=== PATIENT | female | born 1990 | race Caucasian/White ===

== ENCOUNTER 2022-02-12 16:25 | Inpatient (IN) | payer OTHER, SELFPAY ==
[2022-02-12] VITALS (14 sets, daily range): BP systolic 100–121; BP diastolic 59–82; PULSE 49–71; TEMP 36.3–36.9; O2SAT 97–99; BMI 27.9
[2022-02-12] MEDS: Lactated Ringers 1,000 ML 50 ML IV (17:00)
[2022-02-12 17:03] LABS: Absolute Lymphocyte Count 1.72 X10^3/uL (0.83-4.51); Absolute Neutrophil Count 8.2 X10^3/uL (2.0-7.7); Basophil# 0.04 X10^3/uL; Basophil% 0.4 % (0-1); Eosinophil# 0.06 X10^3/uL; Eosinophils% 0.6 % (0-5); Hematocrit 36.2 % (37-47); Lymphocyte # 1.72 X10^3/ul (0.83-4.51); Lymphocyte % 15.8 % (19-41); Mean Corp Hgb Conc 33.1 g/dL (32-36); Mean Corpuscular Hgb 29.1 pg (27.0-32.0); Mean Corpuscular Volume 87.7 fL (81-99); Mean Platelet Vol. 11.1 fl (6.2-12.0); Monocyte# 0.74 X10^3/uL; Monocyte% 6.8 % (0-10); NRBC Flagged by Analyzer 0 % (0-5); Neutrophil # 8.23 X10^3/uL (2.7-7.7); Neutrophil % 75.6 % (47-70); Platelet Count 203 K/mm3 (150-450); RBC Distribution Width CV 13.1 % (11.6-14.6); RBC Distribution Width SD 41.8 fl (35.1-43.9); Red Blood Count 4.13 M/mm3 (4.2-5.4); White Blood Count 10.9 K/mm3 (4.4-11.0)
[2022-02-12] MEDS: Oxytocin 15 Units/NS 250ml 15 UNITS/250 ML IV.SOLN 2 UNITS IV (17:07)
[2022-02-13] VITALS (42 sets, daily range): BP systolic 86–143; BP diastolic 50–77; PULSE 47–88; TEMP 36.4–37.9; O2SAT 93–98
--- NOTE | 2022-02-13 08:55 | HP.PCM.OB_ITS ---
HPI - General General Date of Admission: 02/12/22 HPI Narrative ALBER CARBAJAL, is a 31 F who presents for elective induction of labor. at 40w4d. course uncomplicated. Maternal Data Information ZACHARY Calculator Estimated Delivery Date Method Current WG Current Estimate 02/09/22 Manual 40w 4d PFSH PFSH Home Medications vitamins-iron fumarate 65 mg iron-folic acid 1 mg tablet 1 tab PO DAILY 02/12/22 [History Last Taken 02/12/22 10:00] Allergy/AdvReac Type Severity Reaction Status Date / Time No Known Allergies Allergy Verified 02/12/22 14:06 Surgical History (Updated 02/12/22 @ 19:17 by Ro Beckman) [place] teeth removed Social History Smoking Status: Never smoker History Elective abortions Hx Para 0 Spontaneous abortions Hx # Term Pregnancies Ectopic pregnancies Hx # Pregnancies Multiple births # of living children Visit Details OB Flowsheet Initial Weight: Not Recorded Date -?-?-?-?-?-?-?-?-?-?-?-?- EGA Weight BP Urine Prot -?-?-?-?-?-?-?-?-?-?-?-?- Glucose FHR FuHt Pres Dilation -?-?-?-?-?-?-?-?-?-?-?-?- Effaced St Visit Note 02/12/22 -?-?-?-?-?-?-?-?-?-?-?-?- 40w 3d 163 lb 100/61 113/63 105/59 121/82 110/77 106/61 100/60 106/57 99/63 111/52 107/62 109/54 110/70 112/64 143/77 112/67 121/69 110/56 119/57 108/57 110/61 110/56 97/53 121/69 86/50 102/61 -?-?-?-?-?-?-?-?-?-?-?-?- -?-?-?-?-?-?-?-?-?-?-?-?- NST FHR Rate Baby A Baseline: 125 Variability:: Moderate Accelerations:: 15 x 15 Decelerations:: None FHR Category:: Category I Uterine Activity:: Irregular ROS Constitutional Constitutional: Reports systems reviewed and no addt'l complaints, except as documented; Denies headache(s) Eyes Eyes: Denies acute decrease in peripheral vision, blurry vision or change in vision ENT HEENT: Reports systems reviewed and no addt'l complaints, except as documented Cardiovascular Cardiovascular: Denies chest pain or dizziness Respiratory/Chest Respiratory/Chest: Denies cough, dyspnea, dyspnea on exertion, shortness of breath at rest or shortness of breath with exertion Gastrointestinal Gastrointestinal: Denies abdominal pain, diarrhea, nausea or vomiting Genitourinary Genitourinary: Denies abdominal discomfort Musculoskeletal Musculoskeletal: Denies limited range of motion Integumentary Integumentary: Reports systems reviewed and no addt'l complaints, except as documented Neurologic Neurologic: Reports systems reviewed and no addt'l complaints, except as documented Psychiatric Psychiatric: Reports systems reviewed and no addt'l complaints, except as documented Endocrine Endocrinology: Reports systems reviewed and no addt'l complaints, except as documented Hematologic/Lymphatic Hematologic/Lymphatic: Reports systems reviewed and no addt'l complaints, except as documented Allergic/Immunologic Allergic/Immunologic: Reports systems reviewed and no addt'l complaints, except as documented Vital Signs Vital Signs Vital Signs: 02/12/22 13:39 02/12/22 13:39 02/12/22 13:40 Temperature 98.2 F Temperature Source Pulse Rate 53 L Blood Pressure 100/61 BP Systolic 100 BP Diastolic 61 Pulse Ox 02/12/22 14:01 02/12/22 14:01 02/12/22 17:25 Temperature 98.2 F Temperature Source Pulse Rate 65 Blood Pressure BP Systolic BP Diastolic Pulse Ox 97 02/12/22 17:26 02/12/22 17:26 02/12/22 17:26 Temperature Temperature Source Pulse Rate 56 L Blood Pressure 113/63 BP Systolic 113 BP Diastolic 63 Pulse Ox 98 02/12/22 18:31 02/12/22 18:31 02/12/22 18:31 Temperature Temperature Source Pulse Rate 55 L Blood Pressure 105/59 L BP Systolic 105 BP Diastolic 59 Pulse Ox 98 02/12/22 19:21 02/12/22 19:21 02/12/22 19:20 Temperature 98.4 F Temperature Source Pulse Rate 71 Blood Pressure 121/82 H BP Systolic 121 BP Diastolic 82 Pulse Ox 02/12/22 19:21 02/12/22 20:17 02/12/22 20:17 Temperature 98.2 F Temperature Source Temporal Temporal Pulse Rate Blood Pressure BP Systolic BP Diastolic Pulse Ox 02/12/22 20:18 02/12/22 20:18 02/12/22 20:17 Temperature 98.3 F Temperature Source Pulse Rate 56 L Blood Pressure 110/77 BP Systolic 110 BP Diastolic 77 Pulse Ox 02/12/22 21:47 02/12/22 21:47 02/12/22 21:47 Temperature 98.1 F Temperature Source Pulse Rate 49 L Blood Pressure BP Systolic BP Diastolic Pulse Ox 99 02/12/22 21:48 02/12/22 21:48 02/12/22 21:47 Temperature Temperature Source Temporal Pulse Rate 57 L Blood Pressure 106/61 BP Systolic 106 BP Diastolic 61 Pulse Ox 02/12/22 23:31 02/12/22 23:31 02/12/22 23:30 Temperature 97.3 F L Temperature Source Pulse Rate 54 L Blood Pressure 100/60 BP Systolic 100 BP Diastolic 60 Pulse Ox 02/12/22 23:29 02/13/22 01:35 02/13/22 01:35 Temperature Temperature Source Temporal Pulse Rate 54 L Blood Pressure 106/57 L BP Systolic 106 BP Diastolic 57 Pulse Ox 02/13/22 01:34 02/13/22 02:29 02/13/22 02:29 Temperature 98.1 F Temperature Source Pulse Rate 56 L Blood Pressure 99/63 BP Systolic 99 BP Diastolic 63 Pulse Ox 02/13/22 02:29 02/13/22 02:29 02/13/22 03:56 Temperature 98.1 F 97.9 F Temperature Source Temporal Pulse Rate Blood Pressure BP Systolic BP Diastolic Pulse Ox 02/13/22 03:57 02/13/22 03:57 02/13/22 03:57 Temperature Temperature Source Pulse Rate 47 L Blood Pressure 111/52 L BP Systolic 111 BP Diastolic 52 Pulse Ox 98 02/13/22 05:26 02/13/22 05:26 02/13/22 05:25 Temperature 99.3 F H Temperature Source Pulse Rate 62 Blood Pressure 107/62 BP Systolic 107 BP Diastolic 62 Pulse Ox 02/13/22 05:26 02/13/22 07:24 02/13/22 07:24 Temperature Temperature Source Temporal Pulse Rate 50 L Blood Pressure 109/54 L BP Systolic 109 BP Diastolic 54 Pulse Ox 02/13/22 07:24 02/13/22 07:24 02/13/22 07:22 Temperature 98.2 F Temperature Source Temporal Pulse Rate Blood Pressure BP Systolic BP Diastolic Pulse Ox 93 02/13/22 07:22 02/13/22 07:29 Temperature 98.2 F Temperature Source Temporal Pulse Rate Blood Pressure BP Systolic BP Diastolic Pulse Ox Weight Weight: 163 lb Body Mass Index (BMI) 27.9 Physical Exam Const alert and oriented x3 General Appearance: cooperative Orientation / Consciousness: awake, oriented to person, oriented to place and oriented to time Exam Limitations: no limitations HEENT normocephalic Head and Scalp: normal to inspection, normocephalic and atraumatic Face and Sinus: normal facial exam Eyes General Eye: normal appearance of both eyes Neck full ROM Chest Chest: symmetrical chest wall rise Resp normal respiratory effort and normal air movement Auscultation: clear to auscultation bilaterally Cardio regular rate, regular rhythm, S1 normal heart sound, S2 normal heart sound, no murmurs, no rub, no gallops and no clicks GI normal to inspection, nondistended, normoactive bowel sounds and non-tender appearance of the vagina normal Narrative: AROM for large amount of clear fluid. Cervical exam from 2cm to 4cm with contraction after AROM Bladder / Kidney Exam: no CVA tenderness Manual OB Exam: estimated gestational size appropriate, presentation cephalic, dilated 2cm, effaced 60 and station -2 Back/Spine normal ROM Extremity normal to inspection and full ROM Skin no rashes or lesions noted Neuro oriented x3, CN's II-XII intact bilaterally and moves all extremities Sensorium / Orientation: awake, alert and oriented to person Motor Exam: clonus absent Deep Tendon Reflexes: Rt Patellar (L4): 2+ and Lt Patellar (L4): 2+ Labs Labs Labs: Blood Type O POSITIVE Antibody Screen NEGATIVE Hct 36.2 % (37-47) L Hgb 12.0 g/dL (12.0-15.0) RPR negaive GBS negative HIV negative HBsAG negative Rubella Immune HepB Negative HepC negative HIV non reactive O positive GC/CT negative Assessment & Plan (1) Encounter for elective induction of labor: PLAN: Plan 1) Induction of labor 2) Pitocin per protocol for active management 3) Continuous EFM 4) Epidural for pain management upon request 5) GBS negative 6) Category 1 FHT 7) collaborative physician.
[2022-02-13] MEDS: Lactated Ringers 1,000 ML 50 ML IV (09:52)
[2022-02-13] MEDS: LACTATED RINGERS 500 ML 999 ML IV (10:55)
[2022-02-13] MEDS: fentaNYL-bupivacaine (epidural) 100 ML BAG EPIDURAL ×4 (11:56→21:02)
[2022-02-13] MEDS: Oxytocin 15 Units/NS 250ml 15 UNITS/250 ML IV.SOLN 14 UNITS IV (14:04)
[2022-02-13] MEDS: Lactated Ringers 1,000 ML 200 ML IV ×2 (16:08→21:06)
[2022-02-13] MEDS: Ondansetron 4 MG/2 ML Vial IV (19:20)
[2022-02-13] MEDS: Calcium Carbonate 500 MG Tablet 1000 MG PO (20:35)
[2022-02-14] VITALS (35 sets, daily range): BP systolic 80–126; BP diastolic 41–81; PULSE 51–113; RESP 14–18; TEMP 36.1–38.3; O2SAT 93–100
[2022-02-14] MEDS: LACTATED RINGERS 500 ML 999 ML IV (00:10)
[2022-02-14] MEDS: Amnioinfusion- 0.9% NS 1,000 ML IV.SOLN. 1000 ML INTRA-UTER (00:55)
[2022-02-14] MEDS: Ondansetron 4 MG/2 ML Vial IV (01:25)
[2022-02-14] MEDS: Acetaminophen 500 MG Tablet PO (02:22)
[2022-02-14] MEDS: Lactated Ringers 1,000 ML 200 ML IV (02:22)
[2022-02-14] MEDS: Sodium Citrate/Citric Acid 30 ML UDC PO (02:23)
[2022-02-14] MEDS: Cefazolin 2 GM in 0.9% Normal Saline 100 ML IV ×3 (02:41→20:13)
--- NOTE | 2022-02-14 03:34 | EX.PCM.OBRPT ---
Maternal Data Information ZACHARY Calculator Estimated Delivery Date Method Current WG Current Estimate 02/09/22 Manual 40w 5d Details Operative Information Date of Procedure: 02/14/22 Pre-Operative Diagnosis: (1) Inability of fetus to tolerate labor Post-Operative Diagnosis: Same Indications for : - (See above) Indications Narrative: The patient was taken to the operating room where epidural anesthesia was dosed & found to be adequate. She was prepped and draped in the dorsal supine position with a leftward tilt. A Pfannenstiel skin incision was made approximately 2 cm above the symphysis pubis and carried through to the underlying fascia with the scalpel. The fascia was incised incised in the midline and extended laterally with the Eli scissors. The rectus muscles were in the midline and the peritoneum was entered carefully and bluntly. The peritoneal incision was stretched and the bladder blade was inserted. Vesicouterine peritoneum was tented up, incised & then bladder flap created gently. The uterine incision was made in a low transverse fashion with the scalpel and extended superiorly and inferiorly with blunt dissection. The 's head was brought to the incision in the flexed position and delivered without difficulty. The head was gently guided to allow delivery of the anterior and posterior shoulders. The body then delivered with fundal pressure in the standard fashion. The 3VC cord was clamped and cut in delayed fashion. The infant was handed off to the waiting pediatric critical care nurse. The placenta was delivered with fundal massage and gentle traction in the standard fashion. The uterus was exteriorized and cleared of clots and debris. The uterine incision was closed with #1 Vicryl suture in a running locked fashion. Monocryl suture was used in an imbricating fashion. The incision was examined and was found to be hemostatic. The uterus was returned to the abdominal cavity. After irrigating Ang was placed over the uterine incision as some areas were denuded (but hemostatic). The peritoneum was closed with vicryl suture in running fashion The rectus muscle was examined and any bleeding was Bovie cauterized. The fascia was closed with PDS suture in a running standard fashion. The subcutaneous tissue was examining and any bleeding was Bovie cauterized. The skin was closed in a subcuticular fashion by the MAINFRAME ANALYST while I was present in the labor & delivery unit. The remainder of the procedure was performed by me with assistance. All sponge, lap, and needle counts were correct. The patient was taken to her room for recovery in a stable condition. Classification: DIO Procedure Type: low transverse inspector poising #1: Nik Abarca Type of Anesthesia: Epidural Antibiotic Given: Ancef 2 grams IV x1 and Zithromax 500 mg/5 mL X1 Drain: Larose to straight drain Estimated Blood Loss: 700ml Fluids Replaced: 1000ml Procedure Start Time: 02:44 Procedure Stop Time: 03:35 Findings Description of Procedure: Normal maternal uterus and adnexa Presentation: Positive for Vertex Amniotic Membrane Rupture Type: Artificial Amniotic Fluid Description: Clear Placental Delivery Description: Expressed Placenta Disposition: [facility] Specimen(s) Sent to Pathology: none Cord Vessel Description: 3 Vessels Cord Entanglement: None A Gender: Male (Antwon, weight = 3785g) (1 minute): 8 (5 minute): 9 Delayed Cord Clamping: Yes Complications Complications: None
--- NOTE | 2022-02-14 04:30 | NURSING ---
called in for Pt update. updated temp 100.9 temporal when back to room from OR, HR 110-130s, fundus firm, lochia small. new orders to start gentamycin 5mg/kg x1 and then pharmacy to dose and to start ancef 2g IV Q8 hours x3 doses
[2022-02-14] MEDS: Oxytocin 15 Units/NS 250ml 15 UNITS/250 ML IV.SOLN 83 UNITS IV (05:06)
[2022-02-14] MEDS: Ketorolac 30 MG/ML Syringe IV ×4 (05:07→23:33)
--- NOTE | 2022-02-14 06:43 | NURSING ---
epidural catheter removed at this time, blue catheter intact.
[2022-02-14] MEDS: Acetaminophen 500 MG Tablet 1000 MG PO ×3 (08:44→20:14)
[2022-02-14] MEDS: 0.9% Saline Lock 10 ML Syringe IV ×5 (11:05→23:34)
[2022-02-14] MEDS: Senna/Docusate Sodium 1 Tablet PO (11:48)
[2022-02-14] MEDS: Prenatal Vits Tablet 1 TABLET PO (12:08)
[2022-02-14] MEDS: Enoxaparin 40 MG/0.4 ML Syringe SC (14:57)
--- NOTE | 2022-02-14 23:38 | NURSING ---
this RN provided education on incentive spirometer. pt able to go up to 2000 and tolerated well.
[2022-02-15 02:56] VITALS: BP 87/50; PULSE 54; RESP 16; TEMP 36.4
[2022-02-15] MEDS: Acetaminophen 500 MG Tablet 1000 MG PO ×4 (02:59→20:20)
[2022-02-15] MEDS: Cefazolin 2 GM in 0.9% Normal Saline 100 ML IV (02:59)
[2022-02-15] MEDS: 0.9% Saline Lock 10 ML Syringe IV ×3 (02:59→22:33)
[2022-02-15 04:23] LABS: Hemoglobin 8.9 g/dL (12.0-15.0); Mean Corpuscular Hgb 29.1 pg (27.0-32.0); Mean Corpuscular Volume 88.2 fL (81-99); Mean Platelet Vol. 10.9 fl (6.2-12.0); Platelet Count 145 K/mm3 (150-450); RBC Distribution Width CV 13.2 % (11.6-14.6); RBC Distribution Width SD 42.5 fl (35.1-43.9); Red Blood Count 3.06 M/mm3 (4.2-5.4); White Blood Count 13.4 K/mm3 (4.4-11.0)
--- NOTE | 2022-02-15 08:37 | PN.OBGYN_ITS ---
Subjective Subjective Patient seen at bedside. Feeling good. Ambulating and voiding without difficulty. with support. Denies any headache, vision changes, SOB, or CP. Pain controlled. Desires discharge home tomorrow. Objective Data Objective Data Vital Signs: Vital Signs Temp Pulse Resp BP Pulse Ox O2 Del Method O2 Flow Rate 97.5 F L 54 L 16 87/50 L 97 Room Air 10 02/15/22 02:56 02/15/22 02:56 02/15/22 02:56 02/15/22 02:56 02/14/22 23:35 02/15/22 02:56 02/14/22 01:47 Oxygen Flow Rate (L/min) 10 Oxygen Delivery Method Room Air Weight: 163 lb Body Mass Index (BMI) 27.9 Intake & Output: Intake and Output for Last 24 Hours 02/13/22 02/14/22 02/15/22 23:59 23:59 23:59 Intake Total 3211.12 / 3211.12 3230.03 / 3230.03 110 / 110 Output Total 1750 / 1750 3153 / 3153 Balance 1461.12 / 1461.12 77.03 / 77.03 110 / 110 Lab / Micro Data Result Diagrams: 02/15/22 04:10 Labs: Laboratory Results - last 24 hr 02/15/22 04:10: WBC 13.4 H, RBC 3.06 L, Hgb 8.9 L, Hct 27.0 L, MCV 88.2, MCH 29.1, MCHC 33.0, RDW Std Deviation 42.5, RDW Coeff of Albertina 13.2, Plt Count 145 L, MPV 10.9 ROS Eyes Eyes: Denies blurry vision, change in vision or spots in vision ENT HEENT: Denies dizziness or headache(s) Cardiovascular Cardiovascular: Denies abdominal pain, chest pain or dyspnea Respiratory/Chest Respiratory/Chest: Denies cough, dyspnea, shortness of breath at rest or victorina rtness of breath with exertion Gastrointestinal Gastrointestinal: Denies abdominal pain, diarrhea or vomiting Genitourinary Genitourinary: Denies change in urinary stream, difficulty urinating or dysuria Musculoskeletal Musculoskeletal: Reports none Integumentary Integumentary: Denies rash Neurologic Neurologic: Denies dizziness, headache(s), memory loss or weakness Physical Exam Narrative Dressing is dry and intact Const alert and no apparent distress General Appearance: cooperative and comfortable Exam Limitations: no limitations HEENT normocephalic Eyes General Eye: normal appearance of both eyes Neck full ROM General: normal visual inspection Chest Chest: symmetrical chest wall rise Resp normal respiratory effort and normal air movement Effort and Inspection: symmetric chest movement Auscultation: clear to auscultation bilaterally Cardio regular rate and regular rhythm GI normal to inspection, nondistended, normoactive bowel sounds Back/Spine normal ROM Extremity full ROM and no calf tenderness General Extremity: normal exam except as noted Skin no rashes or lesions noted Neuro CN's II-XII intact bilaterally Psych mental status grossly normal Assessment & Plan (1) Status post primary low transverse section: (2) Care and examination of lactating mother: PLAN: Plan PO Day 1 Routine care Pain control support Increase ambulation Anticipate discharge home tomorrow
[2022-02-15 08:56] VITALS: BP 90/54; PULSE 62; RESP 14; TEMP 36.7; O2SAT 97
[2022-02-15] MEDS: Ibuprofen 600 MG Tablet PO ×3 (10:13→22:32)
[2022-02-15] MEDS: Senna/Docusate Sodium 1 Tablet PO (10:14)
[2022-02-15] MEDS: Enoxaparin 40 MG/0.4 ML Syringe SC (10:15)
[2022-02-15] MEDS: Prenatal Vits Tablet 1 TABLET PO (12:45)
[2022-02-15] MEDS: Ferrous Sulfate 325 MG Tablet PO ×2 (12:45→16:58)
[2022-02-15 12:50] VITALS: BP 97/56; PULSE 55; RESP 15; TEMP 36.9; O2SAT 96
[2022-02-15 14:44] VITALS: BP 84/43; PULSE 62; RESP 16; TEMP 36.7; O2SAT 96
[2022-02-15 20:12] VITALS: BP 96/58; PULSE 59; RESP 14; TEMP 36.8; O2SAT 98
[2022-02-16 01:55] VITALS: BP 94/48; PULSE 55; RESP 16; TEMP 36.8; O2SAT 95
[2022-02-16] MEDS: Acetaminophen 500 MG Tablet 1000 MG PO ×3 (03:20→15:40)
[2022-02-16] MEDS: Ibuprofen 600 MG Tablet PO ×2 (05:25→11:50)
[2022-02-16 05:46] LABS: Hematocrit 28.3 % (37-47); Hemoglobin 9.3 g/dL (12.0-15.0); Mean Corp Hgb Conc 32.9 g/dL (32-36); Mean Corpuscular Hgb 28.8 pg (27.0-32.0); Mean Corpuscular Volume 87.6 fL (81-99); Mean Platelet Vol. 10.6 fl (6.2-12.0); Platelet Count 154 K/mm3 (150-450); RBC Distribution Width CV 13.2 % (11.6-14.6); RBC Distribution Width SD 42.1 fl (35.1-43.9); Red Blood Count 3.23 M/mm3 (4.2-5.4); White Blood Count 8.9 K/mm3 (4.4-11.0)
--- NOTE | 2022-02-16 07:18 | PCM.DC.SUM ---
Providers Date of Admission: 02/12/22 Primary Care Physician: No Primary Care Phys Reason For Visit: PRIMARY Diagnosis Discharge Diagnosis (1) Status post primary low transverse section: Status: Acute Code(s): Z98.891 - History of uterine scar from previous surgery (2) Care and examination of lactating mother: Status: Acute Code(s): Z39.1 - Encounter for care and examination of lactating mother Medications at Discharge Home Medications vitamins-iron fumarate 65 mg iron-folic acid 1 mg tablet 1 tab PO DAILY 02/12/22 ferrous sulfate 325 mg (65 mg iron) tablet (FeroSul) 325 mg PO 1200,1700 #0 tabs 02/16/22 sennosides 8.6 mg-docusate sodium 50 mg tablet (Stool Softener-Stimulant Laxative) 1 - 2 tab PO DAILY #0 tabs 02/16/22 Hospital Course Operations section Summary of Care Provided Hospital Course: Patient here for primary section. Hospital course was uneventful. Physical Exam Narrative Patient seen at bedside. Feeling good. Ambulating and voiding without difficulty. Had BM last night. with minimal support. Pain is controlled. Lochia decreasing. Denies headache, vision changes, SOB, or CP. Desires discharge home today. Dressing is dry and intact. Const alert and no apparent distress General Appearance: cooperative and comfortable Exam Limitations: no limitations HEENT normocephalic Eyes General Eye: normal appearance of both eyes Neck full ROM General: normal visual inspection Chest Chest: symmetrical chest wall rise Resp normal respiratory effort and normal air movement Effort and Inspection: symmetric chest movement Auscultation: clear to auscultation bilaterally Cardio regular rate and regular rhythm GI normal to inspection, nondistended, normoactive bowel sounds Back/Spine normal ROM Extremity full ROM and no calf tenderness General Extremity: normal exam except as noted Skin no rashes or lesions noted Neuro CN's II-XII intact bilaterally Psych mental status grossly normal Weight / BMI Weight Weight: 163 lb Body Mass Index (BMI) 27.9 ABG / Lab / Microbiology Data Result Diagrams: 02/16/22 05:36 Laboratory: Laboratory Results - last 24 hr 02/16/22 05:36: WBC 8.9, RBC 3.23 L, Hgb 9.3 L, Hct 28.3 L, MCV 87.6, MCH 28.8, MCHC 32.9, RDW Std Deviation 42.1, RDW Coeff of Albertina 13.2, Plt Count 154, MPV 10.6 D/C Instructions Discharge Diet: No restrictions Discharge Activity: May Not Drive (2 weeks) and May Shower Weight Bearing Status: Weight bearing as tolerated Lifting Restrictions: 25 lbs. Call your doctor if your incision/area has: Increased Pain/ Swelling and Foul Smelling Discharge Call your doctor if you observe: Fever of 101 or Higher, Inability to urinate, Using more than 1 pad per hour, Shortness of breath, Dizziness, Chest pain, Calf discomfort and Uncontrolled pain Change Dressing in: leave in place till F/U Please Follow Up With: Darrin Pelaez MD When: 1 week for incision check Meaningful Use Info Meaningful Use Diagnoses (Choose all that apply): None applicable Discharge Plan Admission Admit Date/Time: 02/12/22 16:25 Primary Reason for Your Visit: primary cesearan section Attending Provider: Darrin Pelaez Primary Care Provider: Care Physician,No Primary Discharge Orders/Prescriptions Prescriptions: New sennosides-docusate sodium [Stool Softener-Stimulant Laxat] 8.6-50 mg Tablet 1 - 2 tab PO DAILY Qty: 0 0RF ferrous sulfate [FeroSul] 325 mg (65 mg iron) Tablet 325 mg PO 1200,1700 Qty: 0 0RF Continued vit-iron fum-folic ac 65 mg iron- 1 mg Tablet 1 tab PO DAILY Referrals / Follow Up: Care Physician,No Primary [Primary Care Provider] - Disposition Disposition (needs filled in before D/C Order can be placed): Home, Self Care
[2022-02-16 08:07] VITALS: BP 92/44; PULSE 43; RESP 16; TEMP 36.6; O2SAT 97
--- NOTE | 2022-02-16 08:25 | PCM.PN.OB ---
Subjective Subjective Well controlled. Average lochia. Is ambulating urinating and tolerating regular diet without difficulty. Has had a bowel movement. Is working on breast-feeding. Denies fevers or chills, headache or visual changes. Objective Data Objective Data Vital Signs: Vital Signs Temp Pulse Resp BP Pulse Ox O2 Del Method O2 Flow Rate 97.9 F 43 L 16 92/44 L 97 Room Air 10 02/16/22 08:07 02/16/22 08:07 02/16/22 08:07 02/16/22 08:07 02/16/22 08:07 02/16/22 08:07 02/14/22 01:47 Oxygen Flow Rate (L/min) 10 Oxygen Delivery Method Room Air Weight: 73.936 kg Body Mass Index (BMI) 27.9 Intake & Output: Intake and Output for Last 24 Hours 02/14/22 02/15/22 02/16/22 23:59 23:59 23:59 Intake Total 3230.03 / 3230.03 110 / 110 Output Total 3153 / 3153 Balance 77.03 / 77.03 110 / 110 Lab / Micro Data Result Diagrams: 02/16/22 05:36 Labs: Laboratory Results - last 24 hr 02/16/22 05:36: WBC 8.9, RBC 3.23 L, Hgb 9.3 L, Hct 28.3 L, MCV 87.6, MCH 28.8, MCHC 32.9, RDW Std Deviation 42.1, RDW Coeff of Albertina 13.2, Plt Count 154, MPV 10.6 Physical Exam Const alert General Appearance: cooperative GI GI Narrative: soft, moderate distention, fundus firm, appropriately tender. Abdominal bandage clean dry and intact Assessment & Plan (1) Status post primary low transverse section: PLAN: Postoperative day #2 status post primary section. is breast-feeding and doing well. Pediatrics is cleared for discharge. Patient is afebrile and doing well. Routine instructions and discharge prescriptions.
--- NOTE | 2022-02-16 08:26 | DS.PCM_ITS ---
Providers Date of Admission: 02/12/22 Primary Care Physician: No Primary Care Phys Reason For Visit: PRIMARY Diagnosis Discharge Diagnosis (1) Status post primary low transverse section: Status: Acute Code(s): Z98.891 - History of uterine scar from previous surgery Plan: Postoperative day #2 status post primary section. is breast- feeding and doing well. Pediatrics is cleared for discharge. Patient is afebrile and doing well. Routine instructions and discharge prescriptions. Medications at Discharge Home Medications vitamins-iron fumarate 65 mg iron-folic acid 1 mg tablet 1 tab PO DAILY 02/12/22 ferrous sulfate 325 mg (65 mg iron) tablet (FeroSul) 325 mg PO 1200,1700 #0 tabs 02/16/22 ibuprofen 600 mg tablet 600 mg PO Q6H PRN Pain 30 days #60 TABLETS 02/16/22 oxycodone 5 mg tablet 5 mg PO Q6H PRN PRN severe pain 74 days #6 TABLETS 02/16/22 sennosides 8.6 mg-docusate sodium 50 mg tablet (Stool Softener-Stimulant Laxative) 1 - 2 tab PO DAILY #0 tabs 02/16/22 Hospital Course Operations - (Primary low transverse section performed on 02/14/2022.) Procedures None Summary of Care Provided Hospital Course: 31-year-old 1 para 0 with a EDC of 02/09/2022 presented with irregular contractions in prodromal labor. Desired to stay for induction of labor. She underwent Pitocin and artificial rupture membranes. She had arrest of dilatation and descent and intolerance of labor. She been 6-1/2 cm for many hours. She had been making slow progress before that. She underwent a low transverse section without difficulty on 02/14/2022. By postoperative day #2 she was ambulating, urinating tolerating regular diet without difficulty. She was discharged home with routine instructions and prescriptions. Weight / BMI Weight Weight: 73.936 kg Body Mass Index (BMI) 27.9 ABG / Lab / Microbiology Data Result Diagrams: 02/16/22 05:36 Laboratory: Laboratory Results - last 24 hr 02/16/22 05:36: WBC 8.9, RBC 3.23 L, Hgb 9.3 L, Hct 28.3 L, MCV 87.6, MCH 28.8, MCHC 32.9, RDW Std Deviation 42.1, RDW Coeff of Albertina 13.2, Plt Count 154, MPV 10.6 D/C Instructions Discharge Diet: No restrictions Weight Bearing Status: Weight bearing as tolerated Call your doctor if your incision/area has: Increased Pain/ Swelling and Foul Smelling Discharge Call your doctor if you observe: Fever of 101 or Higher, Inability to urinate, Using more than 1 pad per hour, Shortness of breath, Dizziness, Chest pain, Calf discomfort and Uncontrolled pain Please Follow Up With: Darrin Pelaez MD When: 1 week for incision check Meaningful Use Info Meaningful Use Diagnoses (Choose all that apply): None applicable Discharge Plan Admission Admit Date/Time: 02/12/22 16:25 Primary Reason for Your Visit: primary cesearan section Attending Provider: Darrin Pelaez Primary Care Provider: Care Sharmila Tavarez Primary Discharge Orders/Prescriptions Prescriptions: New sennosides-docusate sodium [Stool Softener-Stimulant Laxat] 8.6-50 mg Tablet 1 - 2 tab PO DAILY Qty: 0 0RF ferrous sulfate [FeroSul] 325 mg (65 mg iron) Tablet 325 mg PO 1200,1700 Qty: 0 0RF ibuprofen [ibuprofen] 600 mg tablet 600 mg PO Q6H PRN (Reason: Pain) 30 Days Qty: 60 1RF oxycodone 5 mg tablet 5 mg PO Q6H PRN PRN (Reason: severe pain) 74 Days Qty: 6 0RF Continued vit-iron fum-folic ac 65 mg iron- 1 mg Tablet 1 tab PO DAILY Referrals / Follow Up: Care Physician,No Primary [Primary Care Provider] - Disposition Disposition (needs filled in before D/C Order can be placed): Home, Self Care
[2022-02-16] MEDS: Senna/Docusate Sodium 1 Tablet PO (10:11)
[2022-02-16] MEDS: Enoxaparin 40 MG/0.4 ML Syringe SC (10:12)
[2022-02-16] MEDS: Prenatal Vits Tablet 1 TABLET PO (12:54)
[2022-02-16] MEDS: Ferrous Sulfate 325 MG Tablet PO (12:54)
[2022-02-16 15:00] VITALS: BP 111/72; PULSE 60; RESP 16; TEMP 36.6; O2SAT 98
== END 2022-02-16 17:45 | disposition home or self-care (01) | DRG 788 ==
LOC: WPOUT 16:29 → WP 16:29
PROVIDERS: Advanced Practice Midwife; Obstetrics & Gynecology; Admitting Provider Obstetrics & Gynecology; Visit Provider Obstetrics & Gynecology
DX: O62.0 Primary inadequate contractions (principal); Z37.0 Single live birth; Z3A.40 40 weeks gestation of pregnancy
CPT/HCPCS: 59025; 59050; 85025; 85027; 86850; 86900; 86901; 94668; 99221; J7030; J7120; A4216; G0378; J2405; J3490